=== PATIENT | male | born 1955 | race Caucasian/White ===

== ENCOUNTER 2017-01-12 12:15 | Day surgery (SDC) | payer OTHER ==
[~2017-01-12] VITALS: Ht 175.3 cm; Wt 69.5 kg
[2017-01-12 13:41] VITALS: Ht 175.3 cm; Wt 69.5 kg
[2017-01-12 14:58] VITALS: BP 146/73; PULSE 51; RESP 18
--- NOTE | 2017-01-12 15:42 | OPPN ---
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
[2017-01-12] MEDS ORDERED: FENTAnyl 50 MCG/ML VIAL ONE (16:22)
[2017-01-12] MEDS ORDERED: MIDAZOLAM 1 MG/ML 2 ML INJ ONE ×3 (16:23)
--- NOTE | 2017-01-13 02:03 | GILP ---
DATE OF PROCEDURE: 01/12/2017 PROCEDURE PERFORMED: 1. Esophagogastroduodenoscopy and biopsy. 2. Colonoscopy. SURGEON: Magno Choi MD PREOPERATIVE DIAGNOSES: 1. Abdominal pain. 2. Change in bowel habits. 3. Screening colonoscopy. POSTOPERATIVE DIAGNOSES: 1. Gastritis with erosions. 2. Gastric mucosal biopsies were taken for Helicobacter pylori test. 3. Colonoscopy all the way to the cecum. 4. Internal hemorrhoids. 5. No colon neoplasm was identified. INDICATION: Mr. Dilshad Real is a 61-year-old male patient who had upper abdominal pain not responding to therapy. He also noticed change in the bowel habit and he needed screening colonoscopy. The procedures and possible complications were well explained to the patient. He understood and consented to the procedure. DESCRIPTION OF PROCEDURE: Under influence of fentanyl and Versed, the gastroscope was carefully introduced into the esophagus. Under direct vision, it was advanced to the stomach, into the pylorus, into the duodenal bulb and descending duodenum. FINDINGS: Esophagus: Mucosa was normal. Stomach: Patient had gastritis with erosions. Gastric mucosal biopsies were taken for H. pylori test. Duodenum was normal. The colonoscope was carefully introduced in the rectum. Under direct vision, it was advanced all the way to the cecum. Patient had internal hemorrhoids. No colon neoplasm was identified. He tolerated the procedures very well, and there was no complication from the procedures. At the end of the procedure, he was awake with stable vital signs and he was discharged home in the care of his family. IMPRESSION: Please see postoperative diagnoses. PLAN: 1. Omeprazole 40 mg p.o. q.a.m. 2. Await Helicobacter pylori test report. Dictated By: MD DEBI Hein/sushma/sahra /Document#: [id number]
== END 2017-01-12 17:50 | disposition home or self-care (01) ==
LOC: GIL 12:15
PROVIDERS: ATTEND Internal Medicine Gastroenterology
DX: R19.4 Change in bowel habit (principal); K29.60 Other gastritis without bleeding; B96.81 Helicobacter pylori [H. pylori] as the cause of diseases classified elsewhere; K64.8 Other hemorrhoids
CPT/HCPCS: 43239; 45378; 87081; J2250; J3010